=== PATIENT | male | born 1990 | race Caucasian/White ===

== ENCOUNTER 2021-04-17 16:12 | Emergency (ER) | payer SELFPAY ==
[~2021-04-17] VITALS: Ht 172.7 cm; Wt 79.1 kg
[2021-04-17 16:15] VITALS: BP 144/96
--- NOTE | 2021-04-17 16:41 | ED Abdominal Pain ---
General Chief Complaint: Abdominal/GI Problems Stated Complaint: ABD PAIN Nursing Triage Note: Patient reports he had right sided abdominal pain just below his rib cage for 4 hours today from [id number]. He states he went to walk-in care and was referred to the ED. He states he passed gas just before coming to the ED and the pain has completely resolved. He states he has not had a good bowel movement for 2 days. He denies any nausea/vomiting/fever/chills. Source of Information: Patient Exam Limitations: No Limitations History of Present Illness Date Seen by Provider: Apr 17, 2021 Time Seen by Provider: 16:19 Initial Comments 31-year-old male with no significant past medical history coming in due to right-sided more lower abdominal pain that started around noon today while working. Came in waves that were severe at times and then it would let up. He states he has not had a bowel movement in a few days which is unusual for him. Went home, passed gas, and afterwards felt significantly better. Has been pain- free for over 45 minutes. Never had any associated nausea, vomiting, diarrhea, fever, chills, dysuria, frequency, anorexia, or any other concerns. In fact he ate lunch after the pain started and did not have any worsening of pain. No prior history of surgeries. Allergies and Home Medications Allergies Coded Allergies: No Known Drug Allergies (Unverified , 04/17/21) Patient Home Medication List Home Medication List Reviewed: Yes Review of Systems Review of Systems Constitutional: No chills, No fever EENTM: No Symptoms Reported Respiratory: Denies Cough, Denies Shortness of Air Cardiovascular: Denies Chest Pain Gastrointestinal: Abdominal Pain, Constipated; Denies Diarrhea, Denies Nausea, Denies Vomiting Genitourinary: Denies Drainage, Denies Frequency, Denies Flank Pain Musculoskeletal: No back pain Skin: No rash Psychiatric/Neurological: No Symptoms Reported Endocrine: No Symptoms Reported Hematologic/Lymphatic: No Symptoms Reported All Other Systems Reviewed Negative Unless Noted: Yes Past Cibjzjc-Hnmgrq-Vqdizh Hx Patient Social History Tobacco Use?: No Use of E-Cig and/or Vaping dev: No Substance use?: No Alcohol Use?: Yes Alcohol Frequency: Once in a while Pt feels they are or have been: No Physical Exam Vital Signs Vital Signs - First Documented 04/17/21 16:15 Temp 37.1 Pulse 67 Resp 16 B/P (MAP) 144/96 (112) Pulse Ox 96 O2 Delivery Room Air Capillary Refill : Less Than 3 Seconds Height/Weight/BMI Height: '" Weight: lbs. oz. kg; 26.00 BMI Method: General Appearance: WD/WN, no apparent distress HEENT: PERRL/EOMI, normal ENT inspection, pharynx normal Neck: non-tender, full range of motion, supple, normal inspection Respiratory: chest non-tender, lungs clear, normal breath sounds, no respiratory distress, no accessory muscle use Cardiovascular: regular rate, rhythm, no edema, no murmur Gastrointestinal: normal bowel sounds, non tender, soft, no organomegaly, no pulsatile mass; No distended, No guarding, No rebound, No hernia Extremities: normal range of motion, non-tender, normal inspection, no pedal edema, no calf tenderness, normal capillary refill Back: normal inspection, no CVA tenderness, no vertebral tenderness Neurologic/Psychiatric: alert, normal mood/affect Skin: normal color, warm/dry Lymphatic: no adenopathy Progress/Results/Core Measures Results/Orders Vital Signs/I&O 04/17/21 16:15 Temp 37.1 Pulse 67 Resp 16 B/P (MAP) 144/96 (112) Pulse Ox 96 O2 Delivery Room Air Blood Pressure Mean: 112 Progress Progress Note : Progress Note 31-year-old male with above history coming in due to abdominal pain that has completely resolved. Pain lasted several hours and came in waves. Never had any associated symptoms with it. ABCs were intact and vitals were stable on presentation. Physical exam reassuring and even with deep palpation of the abdomen he had no pain at all. Discussed with the patient that without lab work and CT imaging it is not possible to fully rule out anything. However, given his exam is completely normal I think it is highly unlikely he has anything. We engaged in shared decision-making, and decided we would not go forward with any testing, and if he develops the pain again or has any worsening symptoms he will come back to the ER. He was then discharged home in stable condition with strict return precautions. Departure Impression Primary Impression: Abdominal pain Qualified Codes: R10.30 - Lower abdominal pain, unspecified Disposition: 01 HOME, SELF-CARE Condition: Improved Departure-Patient Inst. Decision time for Depature: 16:39 Referrals: NO,LOCAL PHYSICIAN (PCP/Family) Primary Care Physician Patient Instructions: Severe Abdominal Pain, Adult (DC) Add. Discharge Instructions: You were seen in the emergency department for abdominal pain that fortunately has improved and has gone away. Of course it is impossible to know what happened, but it is possible it was due to constipation and needing to pass gas. It is impossible to definitively rule out things like appendicitis unless you do saying such as a CT scan. We discussed doing labs and imaging, but given that you are pain-free right now I think it is reasonable to hold off on this given the risk of radiation and cost to you with being pain-free right now. If things change, pain increases, you develop nausea, fever, or have any other concerns then please come back to the ER. All discharge instructions reviewed with patient and/or family. Voiced understanding. MALORIE ZHAO MD Apr 17, 2021 16:40
== END 2021-04-17 16:42 | disposition home or self-care (01) ==
LOC: ER FS 16:14
DX: R10.31 Right lower quadrant pain (principal)
CPT/HCPCS: 99281